=== PATIENT | female | born 1960 | race Hispanic/Latino ===

== ENCOUNTER 2016-12-02 11:09 | Outpatient (CLI) | payer MEDICAID ==
--- NOTE | 2016-12-02 13:35 | XRay Report ---
Right hip 3 views. History: Posttraumatic osteoarthritis. Findings: The joint space is normal. There no secondary hypertrophic changes. No evidence of fracture is seen. No significant soft tissue abnormalities are seen. Impression: No significant findings.
== END 2016-12-02 11:10 | disposition home or self-care (01) ==
LOC: CARD 11:09
PROVIDERS: ATTEND Psychiatry & Neurology Neurology
DX: M16.51 Unilateral post-traumatic osteoarthritis, right hip (principal); R07.2 Precordial pain
CPT/HCPCS: 93005; 93010

== ENCOUNTER 2017-11-07 01:39 | Emergency (ER) | payer SELFPAY | END 2017-11-07 03:50 | LOC: ED 01:39 | DX: M54.9 Dorsalgia, unspecified (principal); Z53.21 Procedure and treatment not carried out due to patient leaving prior to being seen by health care provider ==